=== PATIENT | male | born 1995 | race Caucasian/White ===

== ENCOUNTER 2021-03-06 15:04 | Emergency (ER) | payer SELFPAY ==
[~2021-03-06] VITALS: Ht 175.3 cm; Wt 68.0 kg
[~2021-03-06 15:04] MED LIST: CODACE30 PO; PENVK500 PO; RXCODACET PO; Veetids 500500 MG PO
[2021-03-06] MEDS ORDERED: Valtrex1000 MG PO (15:36)
== END 2021-03-06 15:49 | disposition home or self-care (01) ==
LOC: ER 15:04
DX: A60.01 Herpesviral infection of penis (principal)
CPT/HCPCS: 99282; A9270

== ENCOUNTER 2024-07-21 06:42 | Emergency (ER) | payer OTHER, BC ==
[~2024-07-21] VITALS: Ht 182.9 cm; Wt 77.1 kg
[~2024-07-21 06:42] MED LIST changes: +AMOCLA875 PO; +Valtrex1000 MG PO
[2024-07-21 10:26] VITALS: BP 121/86
== END 2024-07-21 10:58 | disposition home or self-care (01) ==
LOC: ER 06:42
DX: S16.1XXA Strain of muscle, fascia and tendon at neck level, initial encounter (principal); S09.90XA Unspecified injury of head, initial encounter; V49.9XXA Car occupant (driver) (passenger) injured in unspecified traffic accident, initial encounter; F17.200 Nicotine dependence, unspecified, uncomplicated; Z88.1 Allergy status to other antibiotic agents
CPT/HCPCS: 70450; 72125; 99284-25

== ENCOUNTER 2024-08-04 23:43 | Emergency (ER) | payer BC ==
[~2024-08-04] VITALS: Ht 185.4 cm; Wt 79.4 kg
[2024-08-04 23:43] VITALS: BP 149/135
[~2024-08-04 23:43] MED LIST changes: +Phenylephrine HCl 100 MCG/ML-NS 10MLSYR (1MG/10ML) IV ONE
[2024-08-05 00:29] LABS: BASOPHILS ABSOLUTE AUTO 0.06 K/mm3 (0.00-0.23); BASOPHILS PERCENT AUTO 0 % (0-2); EOSINOPHILS ABSOLUTE AUTO 0.06 K/mm3 (0.00-0.68); EOSINOPHILS PERCENT AUTO 0 % (0-6); Hematocrit 37.9 % (37.0-53.0); Hemoglobin 11.5 g/dL (13.5-17.5); IMMATURE GRAN PERCENT AUTO 2 % (0-1); LYMPHOCYTES ABSOLUTE AUTO 7.06 K/mm3 (0.84-5.20); LYMPHOCYTES PERCENT AUTO 48 % (21-46); MONOCYTES ABSOLUTE AUTO 0.48 K/mm3 (0.16-1.47); MONOCYTES PERCENT AUTO 3 % (4-13); Mean Corpuscular HGB 26.2 pg (26.0-34.0); Mean Corpuscular HGB Conc 30.3 g/dL (31.5-36.5); Mean Corpuscular Volume 86 fL (80-100); Mean Platelet Volume 9.4 fL (9.1-12.4); NEUTROPHILS ABSOLUTE AUTO 6.71 K/mm3 (1.96-9.15); NEUTROPHILS PERCENT AUTO 46 % (41-73); NRBC ABSOLUTE 0.02 K/mm3 (0.00-0.02); NRBC Auto 0.1 /100 WBC (0.0-0.2); Platelet Count 520 K/mm3 (150-400); RDW Standard Deviation 44.1 fL (35.1-46.3); Red Blood Cell Count 4.39 M/mm3 (4.30-5.90); White Blood Cell Count 14.67 K/mm3 (4.00-11.30)
== END 2024-08-05 05:00 ==
LOC: ER 23:43
PROVIDERS: Student in an Organized Health Care Education/Training Program
DX: S01.03XA Puncture wound without foreign body of scalp, initial encounter (principal); I46.9 Cardiac arrest, cause unspecified
CPT/HCPCS: 31500; 36430; 70450; 71045; 85025; 86850; 86900; 86901; 86920; 92950; 99285-25; J0171; J2371; J7060; P9016